=== PATIENT | male | born 1935 | race Caucasian/White ===

== ENCOUNTER → 2018-10-29 | Outpatient (CLI) | payer MEDICARE, MEDICAID ==
[2018-10-29 12:02] LABS: HEMATOCRIT 44 % (40-54); HEMOGLOBIN 15.2 G/DL (13.3-17.7); MEAN CORPUSCULAR HEMOGLOBIN 32 PG (25-34); MEAN CORPUSCULAR HGB CONC 35 G/DL (32-36); MEAN CORPUSCULAR VOLUME 91 FL (80-99); RED CELL DISTRIBUTION WIDTH 13.4 % (10.0-14.5)
[2018-10-29 12:03] LABS: BASOPHILS # (AUTO) 0.1 10^3/uL (0.0-0.1); BASOPHILS % (AUTO) 0 % (0-10); EOSINOPHILS # (AUTO) 0.5 10^3/uL (0.0-0.3); EOSINOPHILS % (AUTO) 7 % (0-10); LYMPHOCYTES % (AUTO) 14 % (12-44); MEAN PLATELET VOLUME 9.5 FL (7.4-10.4); MONOCYTES # (AUTO) 0.5 X 10^3 (0.0-1.0); MONOCYTES % (AUTO) 8 % (0-12); NEUTROPHILS # (AUTO) 4.9 X 10^3 (1.8-7.8); NEUTROPHILS % (AUTO) 70 % (42-75); PLATELET COUNT 160 10^3/uL (130-400)
[2018-10-29 12:30] LABS: BUN/CREATININE RATIO 19; CALCIUM 9.4 MG/DL (8.5-10.1); CARBON DIOXIDE 32 MMOL/L (21-32); CHLORIDE 92 MMOL/L (98-107); CREATININE SERUM 0.88 MG/DL (0.60-1.30); GFR ESTIMATED > 60; GLUCOSE 77 MG/DL (70-105); POTASSIUM 3.6 MMOL/L (3.6-5.0); SODIUM 136 MMOL/L (135-145)
[2018-10-29 12:31] LABS: ALANINE AMINOTRANSFERASE 15 U/L (0-55); ALBUMIN 4.7 GM/DL (3.2-4.5); ALKALINE PHOSPHATASE 65 U/L (40-136); BILIRUBIN,TOTAL 0.7 MG/DL (0.1-1.0); TOTAL PROTEIN 6.9 GM/DL (6.4-8.2)
[2018-10-29 14:50] LABS: CHOLESTEROL 104 MG/DL (< 200); HDL CHOLESTEROL 40 MG/DL (40-60); TRIGLYCERIDES 99 MG/DL (<150); VLDL CHOLESTEROL 20 MG/DL (5-40)
== END ==
LOC: LAB FS 11:08
PROVIDERS: ATTEND Family Medicine
DX: E11.9 Type 2 diabetes mellitus without complications (principal); Z79.4 Long term (current) use of insulin
CPT/HCPCS: 36415; 80053; 80061; 82043; 83036; 85025

== ENCOUNTER → 2019-01-27 | Outpatient (CLI) | payer MEDICARE, MEDICAID ==
[~2019-01-27] MED LIST: BARIUM SUSPENSION 105% (LIQUID POLIBAR PLUS) 240 ML/DOSE PO ONE; BARIUM SUSPENSION 60% (LIQUID EZ PAQUE) 240 ML DOSE PO ONE
--- NOTE | 2019-01-27 17:04 | Diagnostic Imaging Report ---
INDICATION: Dysphagia. TECHNIQUE: The patient ingested effervescent crystals as well as thin and thick barium and imaging of the esophagus was performed. One minute and 27 seconds of fluoroscopy was utilized. The esophagus has a smooth contour. No mass or stricture is identified. There appears to be postop changes of fundoplication. No gastroesophageal reflux or hiatal hernia is seen. IMPRESSION: Postop changes. No significant abnormality is seen. Dictated by: Dictated on workstation # [id number]
== END ==
LOC: RAD 10:32
PROVIDERS: ATTEND Otolaryngology Otolaryngology/Facial Plastic Surgery
DX: R13.10 Dysphagia, unspecified (principal); Z98.890 Other specified postprocedural states
CPT/HCPCS: 74220

== ENCOUNTER 2019-06-15 10:57 | Emergency (ER) | payer MEDICARE, MEDICAID ==
[~2019-06-15] VITALS: Ht 167 cm; Wt 89.0 kg
[2019-06-15 11:44] LABS: HEMATOCRIT 39 % (40-54); HEMOGLOBIN 13.3 G/DL (13.3-17.7); MEAN CORPUSCULAR HEMOGLOBIN 31 PG (25-34); MEAN CORPUSCULAR HGB CONC 34 G/DL (32-36); MEAN CORPUSCULAR VOLUME 92 FL (80-99); MEAN PLATELET VOLUME 9.6 FL (7.4-10.4); PLATELET COUNT 150 10^3/uL (130-400); RED CELL DISTRIBUTION WIDTH 13.6 % (10.0-14.5); WHITE BLOOD COUNT 8.9 10^3/uL (4.3-11.0)
[2019-06-15 11:45] LABS: BASOPHILS % (AUTO) 0 % (0-10); EOSINOPHILS # (AUTO) 0.1 10^3/uL (0.0-0.3); EOSINOPHILS % (AUTO) 1 % (0-10); LYMPHOCYTES # (AUTO) 0.5 X 10^3 (1.0-4.0); LYMPHOCYTES % (AUTO) 6 % (12-44); MONOCYTES # (AUTO) 0.8 X 10^3 (0.0-1.0); MONOCYTES % (AUTO) 8 % (0-12); NEUTROPHILS # (AUTO) 7.5 X 10^3 (1.8-7.8); NEUTROPHILS % (AUTO) 84 % (42-75)
--- NOTE | 2019-06-15 11:45 | ED Syncope ---
General Chief Complaint: Dizziness/Syncope Stated Complaint: LOC Nursing Triage Note: Patient brought in by EMS from dentist office after having possible syncopal episode. Patient stated he was having lots of pain from having his teeth pulled yesterday and doesn't do good with blood. He also hasn't eaten since yesterday morning and has taken insulin. Blood sugar per EMS was 175. Patient states he felt dizzy and thought he was going to pass out. States "I ended up on the floor with 30 people staring at me" Source of Information: Patient History of Present Illness Date Seen by Provider: Jun 15, 2019 Time Seen by Provider: 11:30 Initial Comments The patient is a very pleasant 83-year-old male presents for evaluation from a dental office after possible syncopal episode. He arrives via EMS. The patient states that yesterday he had several of his teeth pulled and today he was having a plate moved around. He states that when he saw the blood he passed out. He had not eaten anything since yesterday morning and does take insulin for diabetes. His blood sugar per EMS was 175. He states that he has had multiple episodes of syncope in the past which were triggered by the side of his own blood. Upon arrival in the emergency department he has no complaints. He specifically denies chest pain, shortness of breath, nausea or vomiting, fevers or chills, palpitations, dizziness or syncope. He reports a history of CAD status post 3 coronary artery stents. Timing/Prior Episodes: Other (patient reports multiple episodes of syncope in the past.) Symptoms Prior to Episode: None Precipitating Factors: Other (sight of blood from recent dental surgery) Loss of Consciousness: Brief (Seconds) Current Symptoms: Back to Normal Allergies and Home Medications Allergies Coded Allergies: No Known Drug Allergies (Unverified , 01/27/19) Patient Home Medication List Home Medication List Reviewed: Yes Review of Systems Constitutional: no symptoms reported EENTM: no symptoms reported Respiratory: no symptoms reported Cardiovascular: syncope Gastrointestinal: no symptoms reported Genitourinary: no symptoms reported Musculoskeletal: no symptoms reported Skin: no symptoms reported Psychiatric/Neurological: No Symptoms Reported All Other Systems Reviewed Negative Unless Noted: Yes Past Mdxkfua-Lztzhp-Djpxnb Hx Past Med/Social Hx: Reviewed Nursing Past Med/Soc Hx Patient Social History Recent Foreign Travel: No Contact w/Someone Who Travel: No Recent Infectious Disease Expo: No Physical Exam Vital Signs Vital Signs - First Documented 06/15/19 11:02 Temp 35.1 Pulse 62 Resp 15 B/P (MAP) 129/59 (82) Pulse Ox 94 Capillary Refill : Less Than 3 Seconds Height, Weight, BMI Height: '" Weight: lbs. oz. kg; 31.00 BMI Method: General Appearance: No Apparent Distress, WD/WN HEENT: PERRL/EOMI, Normal ENT Inspection, Pharynx Normal Neck: Full Range of Motion, Non Tender, Supple Cardiovascular: Regular Rate, Rhythm, No Edema, No JVD Respiratory: Chest Non Tender, Lungs Clear, Normal Breath Sounds, No Accessory Muscle Use, No Respiratory Distress Gastrointestinal: Non Tender, Soft Extremities: Normal Capillary Refill, Non Tender Neurologic/Psychiatric: Alert, Oriented x3, No Motor/Sensory Deficits, Normal Mood/Affect Cranial Nerves: Normal Hearing, Normal Speech, PERRL Motor/Sensory: No Motor Deficit, No Sensory Deficit Skin: Normal Color, Warm/Dry Progress/Results/Core Measures Results/Orders Lab Results Laboratory Tests Test 06/15/19 11:25 Range/Units White Blood Count 8.9 4.3-11.0 10^3/uL Red Blood Count 4.27 L 4.35-5.85 10^6/uL Hemoglobin 13.3 13.3-17.7 G/DL Hematocrit 39 L 40-54 % Mean Corpuscular Volume 92 80-99 FL Mean Corpuscular Hemoglobin 31 25-34 PG Mean Corpuscular Hemoglobin Concent 34 32-36 G/DL Red Cell Distribution Width 13.6 10.0-14.5 % Platelet Count 150 130-400 10^3/uL Mean Platelet Volume 9.6 7.4-10.4 FL Neutrophils (%) (Auto) 84 H 42-75 % Lymphocytes (%) (Auto) 6 L 12-44 % Monocytes (%) (Auto) 8 0-12 % Eosinophils (%) (Auto) 1 0-10 % Basophils (%) (Auto) 0 0-10 % Neutrophils # (Auto) 7.5 1.8-7.8 X 10^3 Lymphocytes # (Auto) 0.5 L 1.0-4.0 X 10^3 Monocytes # (Auto) 0.8 0.0-1.0 X 10^3 Eosinophils # (Auto) 0.1 0.0-0.3 10^3/uL Basophils # (Auto) 0.0 0.0-0.1 10^3/uL Prothrombin Time 13.4 12.2-14.7 SEC INR Comment 1.0 0.8-1.4 Activated Partial Thromboplast Time 28 24-35 SEC Sodium Level 136 135-145 MMOL/L Potassium Level 3.9 3.6-5.0 MMOL/L Chloride Level 94 L 98-107 MMOL/L Carbon Dioxide Level 33 H 21-32 MMOL/L Anion Gap 9 5-14 MMOL/L Blood Urea Nitrogen 19 H 7-18 MG/DL Creatinine 1.02 0.60-1.30 MG/DL Estimat Glomerular Filtration Rate > 60 BUN/Creatinine Ratio 19 Glucose Level 135 H 70-105 MG/DL Calcium Level 9.7 8.5-10.1 MG/DL Corrected Calcium 9.8 8.5-10.1 MG/DL Magnesium Level 1.9 1.6-2.4 MG/DL Total Bilirubin 0.5 0.1-1.0 MG/DL Aspartate Amino Transf (AST/SGOT) 16 5-34 U/L Alanine Aminotransferase (ALT/SGPT) 15 0-55 U/L Alkaline Phosphatase 61 40-136 U/L Troponin I < 0.30 <0.30 NG/ML Total Protein 6.0 L 6.4-8.2 GM/DL Albumin 3.9 3.2-4.5 GM/DL My Orders Orders - EDISON BARRETT DO Cbc With Automated Diff (06/15/19 11:) Magnesium (06/15/19 11:) Chest 1 View Ap/Pa Only (06/15/19:) Ekg Tracing (06/15/19:) Comprehensive Metabolic Panel (06/15/19 11:) Protime With Inr (06/15/19 11:) Partial Thromboplastin Time (06/15/19 11:) O2 (06/15/19:) Monitor-Rhythm Ecg Trace Only (06/15/19:) Ed Iv/Invasive Line Start (06/15/19 11:) Troponin I Fs (06/15/19 11:) Manual Differential (06/15/19 11:25) Vital Signs/I&O 06/15/19 11:02 Temp 35.1 Pulse 62 Resp 15 B/P (MAP) 129/59 (82) Pulse Ox 94 Blood Pressure Mean: 82 Progress Progress Note : Progress Note @1210 - the patient reports that he is feeling completely back to normal and has no complaints. Workup today fails reveal any emergent pathology. The patient is stable for discharge home. The site of his own blood as cause multiple similar episodes in the past. Advise close follow-up with his PCP in the next 1-2 days and return to the emergency Department immediately for new or worsening symptoms. EKG : Comment @1129 - sinus bradycardia, rate of 56, no acute ischemic findings noted, no STEMI, reviewed and interpreted by myself Diagnostic Imaging Comments [facility]. [place], [place] NAME: CELSO MOYA [facility] REC#: [id number] PT STATUS: REG ER : 1937 PHYSICIAN: EDISON BARRETT DO ADMIT DATE: 06/15/19/ER FS Draft Date of Exam:06/15/19 CHEST 1 VIEW AP/PA ONLY INDICATION: Dizziness. Time of exam 11:28 AM No prior studies are available for comparison. The heart size is normal. The pulmonary vascularity is unremarkable. The lungs are clear. No infiltrate, effusion or pneumothorax is detected. Impression: No acute cardiopulmonary process is detected. Dictated on workstation # [id number] Dict: 06/15/19 1156 Trans: 06/15/19 1200 [facility] [id number] Interpreted by: MADAY PAT MD Electronically signed by: Departure Impression Primary Impression: Syncope Disposition: 01 HOME, SELF-CARE Condition: Stable Departure-Patient Inst. Decision time for Depature: 12:14 Referrals: SELF,KOFFI CARDOZO (PCP) Primary Care Physician VIKY LOREDO MD (Family) Primary Care Physician Patient Instructions: Syncope (Fainting) (DC) Add. Discharge Instructions: Follow-up with your doctor in the next 1-2 days. Return to the emergency Department immediately for new or worsening symptoms. EDISON BARRETT DO Jun 15, 2019 11:44
[2019-06-15 11:58] LABS: PROTHROMBIN TIME PATIENT 13.4 SEC (12.2-14.7)
--- NOTE | 2019-06-15 12:00 | Diagnostic Imaging Report ---
INDICATION: Dizziness. Time of exam 11:28 AM No prior studies are available for comparison. The heart size is normal. The pulmonary vascularity is unremarkable. The lungs are clear. No infiltrate, effusion or pneumothorax is detected. Impression: No acute cardiopulmonary process is detected. Dictated by: Dictated on workstation # [id number]
[2019-06-15 12:01] LABS: ALKALINE PHOSPHATASE 61 U/L (40-136); BILIRUBIN,TOTAL 0.5 MG/DL (0.1-1.0); BUN/CREATININE RATIO 19; CALCIUM 9.7 MG/DL (8.5-10.1); CARBON DIOXIDE 33 MMOL/L (21-32); CHLORIDE 94 MMOL/L (98-107); CREATININE SERUM 1.02 MG/DL (0.60-1.30); GFR ESTIMATED > 60; GLUCOSE 135 MG/DL (70-105); MAGNESIUM 1.9 MG/DL (1.6-2.4); POTASSIUM 3.9 MMOL/L (3.6-5.0); SODIUM 136 MMOL/L (135-145)
[2019-06-15 12:02] LABS: ALANINE AMINOTRANSFERASE 15 U/L (0-55); ALBUMIN 3.9 GM/DL (3.2-4.5)
[2019-06-15 12:21] LABS: BAND NEUTROPHILS 3 %; BASOPHILS % (MANUAL) 0 %; EOSINOPHILS % (MANUAL) 2 %; LYMPHOCYTES % (MANUAL) 7 %; MONOCYTES % (MANUAL) 6 %; NEUTROPHILS % (MANUAL) 82 %
[2019-06-15 12:22] LABS: RBC MORPH NORMAL
[2019-06-15 12:26] VITALS: BP 97/43
--- NOTE | 2019-06-15 12:45 | NUR ---
[facility].
--- NOTE | 2019-06-15 12:46 | NUR ---
Called [facility] to inform that patient will be discharged and is coming back by taxi.
== END 2019-06-15 12:50 | disposition home or self-care (01) ==
LOC: EDUNIT# 10:57 → ER FS 10:58
DX: R55 Syncope and collapse (principal)
CPT/HCPCS: 36415; 71045; 80053; 83735; 84484; 85007; 85027; 85610; 85730; 93005; 93041

== ENCOUNTER → 2019-06-15 | Outpatient (CLI) | payer MEDICARE, MEDICAID ==
[2019-06-15 15:31] LABS: CHOLESTEROL 86 MG/DL (< 200); HDL CHOLESTEROL 32 MG/DL (40-60); TRIGLYCERIDES 88 MG/DL (<150); VLDL CHOLESTEROL 18 MG/DL (5-40)
== END ==
LOC: LAB FS 12:15
PROVIDERS: ATTEND Family Medicine
DX: E11.9 Type 2 diabetes mellitus without complications (principal); E78.5 Hyperlipidemia, unspecified
CPT/HCPCS: 36415; 80061; 83036

== ENCOUNTER 2019-07-25 08:11 | Observation (INO) | payer MEDICARE, MEDICAID ==
[~2019-07-25] VITALS: Ht 167.7 cm; Wt 74.0 kg
[2019-07-25] VITALS (10 sets, daily range): BP systolic 166–201; BP diastolic 76–92
--- NOTE | 2019-07-25 08:32 | ED Chest Pain ---
General Stated Complaint: CHEST PAIN Source: patient, EMS Exam Limitations: no limitations History of Present Illness Date Seen by Provider: Jul 25, 2019 Time Seen by Provider: 08:18 Initial Comments The patient is a pleasant 83-year-old male presents from intermediate for evaluation of chest pain which she states been present for 4 days. He states that approximately 7 years ago he had a heart attack and was given a choice between going to the [facility] or having a CABG and he states that he chose to have stents placed. He was told that he may one day need to have a CABG. He arrives via EMS and lives in a intermediate. He states that he was given a nitroglycerin at the intermediate and his pain completely resolved. He had artery take an aspirin this morning as well. Upon arrival in the emergency department the patient reports no complaints. Timing/Duration: 3-4 days Severity/Quality: moderate Location: substernal Radiation: no radiation Activities at Onset: none Prior CP/Workup: cardiac cath, heart attack ASA po GAME DESIGNER/CREATIVE DIRECTOR: Yes NTG SL GAME DESIGNER/CREATIVE DIRECTOR: Yes Associated Symptoms: denies symptoms Allergies and Home Medications Allergies Coded Allergies: No Known Drug Allergies (Unverified , 01/27/19) Patient Home Medication List Home Medication List Reviewed: Yes Review of Systems Review of Systems Constitutional: no symptoms reported EENTM: No Symptoms Reported Respiratory: No Symptoms Reported Cardiovascular: Chest Pain Gastrointestinal: No Symptoms Reported Genitourinary: No Symptoms Reported Musculoskeletal: no symptoms reported Skin: no symptoms reported Psychiatric/Neurological: No Symptoms Reported Endocrine: No Symptoms Reported Hematologic/Lymphatic: No Symptoms Reported All Other Systems Reviewed Negative Unless Noted: Yes Past Maarlti-Yyffcl-Hrlmxx Hx Past Med/Social Hx: Reviewed Nursing Past Med/Soc Hx Patient Social History 2nd Hand Smoke Exposure: No Recent Foreign Travel: Yes Recent Hopitalizations: No Seasonal Allergies Seasonal Allergies: No Past Medical History Surgeries: Yes (colonoscopies; cystoscopy) Respiratory: No Cardiac: Yes Heart Attack Neurological: Yes Stroke Genitourinary: No Gastrointestinal: Yes (hernia) Gastroesophageal Reflux Endocrine: Yes Diabetes, Insulin dep HEENT: Yes Cataract Loss of Vision: Left Hearing Impairment: Hard of Hearing Integumentary: No Physical Exam Vital Signs Vital Signs - First Documented 07/25/19 08:15 Temp 36.0 Pulse 67 Resp 24 B/P (MAP) 185/82 (116) Pulse Ox 98 O2 Delivery Room Air Capillary Refill : Height, Weight, BMI Height: '" Weight: lbs. oz. kg; 31.00 BMI Method: General Appearance: No Apparent Distress, WD/WN HEENT: PERRL/EOMI, TMs Normal, Pharynx Normal Neck: Full Range of Motion, Non Tender, Supple Respiratory: Chest Non Tender, Lungs Clear, Normal Breath Sounds, No Accessory Muscle Use Cardiovascular: Regular Rate, Rhythm, No Edema, No Murmur Gastrointestinal: Normal Bowel Sounds, Non Tender, Soft Extremity: Normal Capillary Refill, Non Tender Neurologic/Psychiatric: Alert, Oriented x3, No Motor/Sensory Deficits, Normal Mood/Affect, utility clerk II-XII Norm as Tested Skin: Normal Color, Warm/Dry Progress/Results/Core Measures Results/Orders Lab Results Laboratory Tests Test 07/25/19 08:20 Range/Units White Blood Count 6.8 4.3-11.0 10^3/uL Red Blood Count 3.52 L 4.35-5.85 10^6/uL Hemoglobin 11.2 L 13.3-17.7 G/DL Hematocrit 33 L 40-54 % Mean Corpuscular Volume 93 80-99 FL Mean Corpuscular Hemoglobin 32 25-34 PG Mean Corpuscular Hemoglobin Concent 34 32-36 G/DL Red Cell Distribution Width 14.2 10.0-14.5 % Platelet Count 175 130-400 10^3/uL Mean Platelet Volume 9.1 7.4-10.4 FL Neutrophils (%) (Auto) 73 42-75 % Lymphocytes (%) (Auto) 14 12-44 % Monocytes (%) (Auto) 9 0-12 % Eosinophils (%) (Auto) 3 0-10 % Basophils (%) (Auto) 1 0-10 % Neutrophils # (Auto) 4.9 1.8-7.8 X 10^3 Lymphocytes # (Auto) 1.0 1.0-4.0 X 10^3 Monocytes # (Auto) 0.6 0.0-1.0 X 10^3 Eosinophils # (Auto) 0.2 0.0-0.3 10^3/uL Basophils # (Auto) 0.1 0.0-0.1 10^3/uL Prothrombin Time 13.2 12.2-14.7 SEC INR Comment 1.0 0.8-1.4 Activated Partial Thromboplast Time 29 24-35 SEC Sodium Level 133 L 135-145 MMOL/L Potassium Level 3.8 3.6-5.0 MMOL/L Chloride Level 92 L 98-107 MMOL/L Carbon Dioxide Level 29 21-32 MMOL/L Anion Gap 12 5-14 MMOL/L Blood Urea Nitrogen 11 7-18 MG/DL Creatinine 0.83 0.60-1.30 MG/DL Estimat Glomerular Filtration Rate > 60 BUN/Creatinine Ratio 13 Glucose Level 120 H 70-105 MG/DL Calcium Level 8.8 8.5-10.1 MG/DL Corrected Calcium 9.1 8.5-10.1 MG/DL Magnesium Level 1.9 1.6-2.4 MG/DL Total Bilirubin 0.3 0.1-1.0 MG/DL Aspartate Amino Transf (AST/SGOT) 23 5-34 U/L Alanine Aminotransferase (ALT/SGPT) 13 0-55 U/L Alkaline Phosphatase 62 40-136 U/L Troponin I < 0.30 <0.30 NG/ML Pro-B-Type Natriuretic Peptide 725.7 H <75.0 PG/ML Total Protein 5.9 L 6.4-8.2 GM/DL Albumin 3.6 3.2-4.5 GM/DL My Orders Orders - EDISON BARRETT DO Cbc With Automated Diff (07/25/19 08:24) Magnesium (07/25/19 08:24) Chest 1 View Ap/Pa Only (07/25/19 08:24) Ekg Tracing (07/25/19 08:24) Comprehensive Metabolic Panel (07/25/19 08:24) Protime With Inr (07/25/19 08:24) Partial Thromboplastin Time (07/25/19 08:24) O2 (07/25/19 08:24) Monitor-Rhythm Ecg Trace Only (07/25/19 08:24) Ed Iv/Invasive Line Start (07/25/19 08:24) Troponin I Fs (07/25/19 08:24) Probnp Fs (07/25/19 08:24) Vital Signs/I&O 07/25/19 08:15 Temp 36.0 Pulse 67 Resp 24 B/P (MAP) 185/82 (116) Pulse Ox 98 O2 Delivery Room Air Progress Progress Note : Progress Note @0950 - patient updated on lab and imaging results. He is agreeable to observation admission. He is agreeable to observation admission. @1000 - Dr. Saul accepts the cardiac consult. @1005 - Dr. Padron accepts the observation admission. EKG : Comment EKG@0818 - normal sinus rhythm, rate of 62, normal axis, questionable ST depr ession in lead 2, otherwise no evidence of acute ST change, no STEMI, reviewed and interpreted by myself Departure Communication (Admissions) Time/Spoke to Admitting Phy: 10:05 Dr. Padron excepts the observation admission at [facility] Impression Primary Impression: Chest pain Disposition: ADMITTED INPATIENT Condition: Stable Admissions Decision to Admit Reason: Admit from ER (General) Decision to Admit/Date: Jul 25, 2019 Time/Decision to Admit Time: 10:05 Departure-Patient Inst. Referrals: KOFFI CORTEZ MD (PCP/Family) Primary Care Physician EDISON BARRETT DO Jul 25, 2019 08:32 POS
[2019-07-25 08:33] LABS: HEMATOCRIT 33 % (40-54); HEMOGLOBIN 11.2 G/DL (13.3-17.7); MEAN CORPUSCULAR HEMOGLOBIN 32 PG (25-34); WHITE BLOOD COUNT 6.8 10^3/uL (4.3-11.0)
[2019-07-25 08:34] LABS: BASOPHILS # (AUTO) 0.1 10^3/uL (0.0-0.1); BASOPHILS % (AUTO) 1 % (0-10); EOSINOPHILS # (AUTO) 0.2 10^3/uL (0.0-0.3); EOSINOPHILS % (AUTO) 3 % (0-10); LYMPHOCYTES % (AUTO) 14 % (12-44); MEAN CORPUSCULAR HGB CONC 34 G/DL (32-36); MEAN CORPUSCULAR VOLUME 93 FL (80-99); MEAN PLATELET VOLUME 9.1 FL (7.4-10.4); MONOCYTES # (AUTO) 0.6 X 10^3 (0.0-1.0); MONOCYTES % (AUTO) 9 % (0-12); NEUTROPHILS # (AUTO) 4.9 X 10^3 (1.8-7.8); NEUTROPHILS % (AUTO) 73 % (42-75); PLATELET COUNT 175 10^3/uL (130-400); RED CELL DISTRIBUTION WIDTH 14.2 % (10.0-14.5)
--- NOTE | 2019-07-25 08:40 | Diagnostic Imaging Report ---
INDICATION: History of coronary artery disease, now with chest pain. COMPARISON: 06/15/2019. FINDINGS: There is no failure pattern. The heart size is within normal limits. No substantial vascular congestion. No effusion or pneumothorax. IMPRESSION: No acute finding or failure pattern. Dictated by: Dictated on workstation # [id number]
[2019-07-25 08:49] LABS: PROTHROMBIN TIME PATIENT 13.2 SEC (12.2-14.7)
[2019-07-25 08:53] LABS: ALANINE AMINOTRANSFERASE 13 U/L (0-55); ALBUMIN 3.6 GM/DL (3.2-4.5); ALKALINE PHOSPHATASE 62 U/L (40-136); BILIRUBIN,TOTAL 0.3 MG/DL (0.1-1.0); BUN/CREATININE RATIO 13; CALCIUM 8.8 MG/DL (8.5-10.1); CARBON DIOXIDE 29 MMOL/L (21-32); CHLORIDE 92 MMOL/L (98-107); CREATININE SERUM 0.83 MG/DL (0.60-1.30); GFR ESTIMATED > 60; GLUCOSE 120 MG/DL (70-105); MAGNESIUM 1.9 MG/DL (1.6-2.4); POTASSIUM 3.8 MMOL/L (3.6-5.0); SODIUM 133 MMOL/L (135-145); TOTAL PROTEIN 5.9 GM/DL (6.4-8.2)
[2019-07-25] MEDS ORDERED: NITROGLYCERIN 0.4 MG SL TABS BTL 25'S SL PRN (12:30)
[2019-07-25] MEDS ORDERED: CATHETER FLUSH 10 ML SYR IV PRN (12:30)
[2019-07-25] MEDS ORDERED: ONDANSETRON 4 MG/2 ML (SDV) Z0FRAN IV PRN (12:30)
[2019-07-25] MEDS ORDERED: morphine INJ 4 MG/ML 1 ML (VIAL/SYRINGE) IV PRN (12:30)
[2019-07-25] MEDS ORDERED: METF-399 PO (13:12)
[2019-07-25] MEDS ORDERED: ATOR80TA76 PO (13:12)
[2019-07-25] MEDS ORDERED: SOLI5TAB7 PO (13:12)
[2019-07-25] MEDS ORDERED: NAPR220T66 PO (13:12)
[2019-07-25] MEDS ORDERED: NAPR250T6 PO (13:12)
[2019-07-25] MEDS ORDERED: PRED5DRO17 OU (13:12)
[2019-07-25] MEDS ORDERED: POTA10TA36 PO (13:12)
[2019-07-25] MEDS ORDERED: CARV25TA PO (13:12)
[2019-07-25] MEDS ORDERED: ASCO10006 PO (13:12)
[2019-07-25] MEDS ORDERED: SODI22SP NS (13:12)
[2019-07-25] MEDS ORDERED: ACET-2267 PO (13:12)
[2019-07-25] MEDS ORDERED: FURO20TA4 PO (13:12)
[2019-07-25] MEDS ORDERED: LOSA1TAB26 PO (13:12)
[2019-07-25] MEDS ORDERED: ASPI-983 PO (13:12)
[2019-07-25] MEDS ORDERED: GABA-490 PO (13:12)
[2019-07-25] MEDS ORDERED: ISOS30TA3 PO (13:12)
[2019-07-25] MEDS ORDERED: CARB15DR OU (13:12)
[2019-07-25] MEDS ORDERED: POLY17PO6 PO (13:12)
[2019-07-25] MEDS ORDERED: MAGN250T13 PO (13:12)
[2019-07-25] MEDS ORDERED: INSU100I34 SC (13:12)
[2019-07-25] MEDS ORDERED: LORA10TA76 PO (13:12)
[2019-07-25] MEDS ORDERED: FISH1CAP15 PO (13:12)
[2019-07-25] MEDS ORDERED: INSU100I14 SC (13:12)
[2019-07-25] MEDS ORDERED: FLAX10004 PO (13:12)
[2019-07-25] MEDS ORDERED: MULT1TAB69 PO (13:12)
[2019-07-25] MEDS ORDERED: UBID1CAP53 PO (13:17)
--- NOTE | 2019-07-25 13:17 | NUR ---
UPDATED MED REC WITH PHARMACY ORDERS FROM [facility]. NOTE THE ORDERS STATED ALEVE (NAPROXEN) 250MG HS HOWEVER THE EXT MED HX SHOWS THE ALEVE 220MG WAS FILLED MOST RECENTLY. I UPDATED THE MED REC WITH THE STRENGTH FILLED ON THE EXT MED HX.
--- NOTE | 2019-07-25 13:17 | NUR ---
NITA CELSO Cabrales admitted to room 420-1, with an admitting diagnosis of chest pain, on 07/25/19 from [facility] ED via stretcher and EMS, accompanied by EMS. CELSO MOYA introduced to surroundings, call light, bed controls, phone, TV, temperature control, lights, meal times, smoking policy, visitor policy, side rail policy, bathrooms and showers. Patient Rights given to patient in the handbook. CELSO MOYA verbalizes understanding that [facility] is not responsible for the loss or damage to any personal effects or valuables that are kept in the patients possession during their hospitalization. The following Patient Care Plans were discussed with the patient: Discharge Planning, pain management, dehydration, and mediations. CELSO MOYA verbalizes understanding of Interdisciplinary Patient Education. Patient and/or family were informed about the Rapid Response Team and its purpose.
[2019-07-25] MEDS ORDERED: MILK OF MAGNESIA 400 MG/5 ML 30 ML UDC PO PRN (13:30)
[2019-07-25] MEDS ORDERED: POLYETHYLENE GLYCOL 17 GM (MIRALAX) PACK PO PRN (13:30)
[2019-07-25] MEDS ORDERED: ACETAMINOPHEN 325 MG TABLET PO PRN (13:30)
[2019-07-25] MEDS ORDERED: BISACODYL 10 MG SUPP (DULCOLAX) PR PRN (13:30)
[2019-07-25] MEDS ORDERED: ANTACID SUSP 30 ML UDC (MYLANTA) PO PRN (13:30)
[2019-07-25] MEDS ORDERED: MELATONIN 3 MG TABLET PO PRN (13:30)
[2019-07-25] MEDS ORDERED: NON-FORMULARY MEDICATION 1 EA EA (Carboxymethylcellulose Sodium (Refresh Tears) 1 DROP) OU PRN (13:45)
[2019-07-25] MEDS ORDERED: NON-FORMULARY MEDICATION 1 EA EA (Loratadine (Claritin) 10 MG) PO PRN (13:45)
[2019-07-25] MEDS ORDERED: LORATADINE (CLARITIN) 10 MG TAB PO PRN (14:15)
[2019-07-25] MEDS ORDERED: ARTIFICAL TEARS 0.4 ML UNIT DOSE (REFRESH PLUS) OU PRN (14:15)
--- NOTE | 2019-07-25 14:20 | History & Physical-Hospitalist ---
History of Present Illness HPI/Chief Complaint Pt is an 83yoCM with a PMH of CAD s/p 3 stent, [place], HTN, IDDMII who presented to the ER due to chest pain. He states it started 4 days ago but he didn't want to tell the nurse at the care home because he knew she would want him to come to the ER. This continued every day intermittently and he tried taking Tylenol for it and it would eventually go away. Last night it worsened and he was gasping for air and moaning in pain. He still did not tell anyone about this until this morning and when he did the RN at the [facility] advised him to call his doctor and go to the ER for evaluation. He was given an nitro in the ambulance and his symptoms resolved. He states it has still been off and on this since he got here but now he thinks it's because he's hungry. He denies any associated SOB or radiation to his arm. It was similar to the previous pain he had when he had his heart attack but not as bad. Source: patient Date Seen 07/25/19 Time Seen by a Provider: 13:30 Attending Physician Rosendo Padron MD PCP SelfGabe MD Referring Physician Date of Admission Jul 25, 2019 at 11:10 Home Medications & Allergies Home Medications Reviewed patient Home Medication Reconciliation performed by pharmacy medication reconciliations all terrain vehicle technician and/or nursing. Patients Allergies have been reviewed. Allergies Allergies Coded Allergies No Known Drug Allergies (Unverified01/27/19) Past Cosjfwo-Hciazi-Ieyrsj Hx Past Med/Social Hx: Reviewed Nursing Past Med/Soc Hx Patient Social History Employed/Student: retired Alcohol Use: Denies Use Recreational Drug Use: No Smoking Status: Never a Smoker 2nd Hand Smoke Exposure: No Recent Foreign Travel: No Contact w/other who traveled: No Recent Hopitalizations: No Recent Infectious Disease Expo: No Immunizations Up To Date Date of Influenza Vaccine: Jul 11, 2019 Seasonal Allergies Seasonal Allergies: No Past Medical History Surgeries: Adenoidectomy, Coronary Stent, Eye Surgery, Tonsillectomy Cardiac: Coronary Artery Disease, Heart Attack Neurological: Stroke Gastrointestinal: Gastroesophageal Reflux Endocrine: Diabetes, Insulin dep HEENT: Cataract Loss of Vision: Left Hearing Impairment: Hard of Hearing Family History Reviewed Nursing Family Hx Review of Systems Constitutional: no symptoms reported EENTM: no symptoms reported Respiratory: No cough, No dyspnea on exertion, No short of breath Cardiovascular: see HPI; No edema Gastrointestinal: No abdominal pain, No heartburn, No nausea, No vomiting Genitourinary: no symptoms reported Musculoskeletal: no symptoms reported Skin: no symptoms reported Psychiatric/Neurological: No Symptoms Reported Physical Exam Physical Exam Vital Signs Vital Signs - First Documented 07/25/19 08:15 Temp 36.0 Pulse 67 Resp 24 B/P (MAP) 185/82 (116) Pulse Ox 98 O2 Delivery Room Air Capillary Refill : Less Than 3 Seconds Height, Weight, BMI Height: '" Weight: lbs. oz. kg; 26.45 BMI Method: General Appearance: No Apparent Distress, WD/WN HEENT: PERRL/EOMI, Moist Mucous Membranes; No Scleral Icterus (L), No Scleral Icterus (R) Neck: Normal Inspection, Supple; No Thyromegaly Respiratory: Lungs Clear, No Accessory Muscle Use, No Respiratory Distress Cardiovascular: Regular Rate, Rhythm, No Murmur Gastrointestinal: Normal Bowel Sounds, Non Tender, Soft Extremity: Normal Inspection, No Calf Tenderness, No Pedal Edema Neurologic/Psychiatric: Alert, Oriented x3, Normal Mood/Affect Skin: Warm/Dry; No Mottled; Pallor Results Results/Procedures Labs Laboratory Tests 07/25/19 08:20 Patient resulted labs reviewed. Imaging: Reviewed Imaging Report Assessment/Plan Admission Diagnosis Chest Pain Admission Status: Observation Assessment and Plan Chest Pain CAD HTN HLD Troponin negative Monitor on telemetry Cardiology consulted, appreciate recs Nitro given in ER, ASA given as NH Resume home antihypertensives IDDMII Continue home insulin SSI Diagnosis/Problems Diagnosis/Problems (1) CAD (coronary artery disease) Qualifiers: Coronary Disease-Associated Artery/Lesion type: [place]ot artery [place] vs. transplanted heart: wiyot heart Associated angina: with unspecified angina Qualified Codes: I25.119 - Atherosclerotic heart disease of [place] coronary artery with unspecified angina pectoris (2) Insulin dependent diabetes mellitus (3) HLD (hyperlipidemia) Qualifiers: Hyperlipidemia type: mixed hyperlipidemia Qualified Codes: E78.2 - Mixed hyperlipidemia (4) Essential (primary) hypertension (5) Chest pain Status: Acute Qualifiers: Chest pain type: other chest pain Qualified Codes: R07.89 - Other chest pain Clinical Quality Measures AMI/AHF: ASA po Prior to arrival: Yes DVT/VTE Risk/Contraindication: Risk Factor Score Per Nursin RFS Level Per Nursing on Admit: 4+=Very High Copy Copies To 1: SELF,ROSENDO BRUNO MD, MD Jul 25, 2019 14:20 POS
[2019-07-25] MEDS ORDERED: NON-FORMULARY MEDICATION 1 EA EA (Insulin Aspart (Novolog Flexpen) 6 UNITS) SC SCH (16:00)
--- NOTE | 2019-07-25 16:00 | Consultation-Cardiology ---
HPI-Cardiology Cardiology Consultation Date of Consultation 07/25/19 Date of Admission Time Seen by Provider: 15:56 Indication: Chest pain HPI 83 years old gentleman with history of coronary artery disease, extensive disease as described below. Hypertension hyperlipidemia. Started have chest pain waxing and waning for the past 4 days which has been worsening. Came into the emergency room and admitted. Currently feeling better but starting to have chest pain again described it as dull in nature in the retrosternal area and with having some dyspnea. No palpitation. No syncope or near syncopal episodes. EKG showed nonspecific changes, cardiac enzymes so far negative Home Medications & Allergies Allergies: Coded Allergies: No Known Drug Allergies (Unverified , 01/27/19) Home Medication List Reviewed: Yes [facility] Hx Patient Social History Employed/Student: retired Alcohol Use: Denies Use Recreational Drug Use: No Smoking Status: Never a Smoker 2nd Hand Smoke Exposure: No Recent Foreign Travel: No Recent Infectious Disease Expo: No Recent Hopitalizations: No Immunizations Up To Date Date of Influenza Vaccine: Jul 11, 2019 Past Medical History Discussed below Family Medical History Family Medical Hx Noncontributory Review of Systems-General Review of Systems Constitutional: no symptoms reported, see HPI EENTM: see HPI, no symptoms reported Respiratory: see HPI; No cough; dyspnea on exertion; No short of breath Cardiovascular: see HPI, chest pain; No edema, No Hx of Intervention, No palpitations, No syncope, No vascular heart diseas, No other Gastrointestinal: no symptoms reported, see HPI; No abdominal pain, No heartburn, No nausea, No vomiting Genitourinary: no symptoms reported, see HPI Musculoskeletal: no symptoms reported, see HPI Skin: no symptoms reported, see HPI Psychiatric/Neurological: No Symptoms Reported, See HPI All Other Systems Reviewed Negative Unless Noted: Yes Reviewed Test Results Reviewed Test Results Lab Laboratory Tests Test 07/25/19 08:20 Range/Units White Blood Count 6.8 4.3-11.0 10^3/uL Red Blood Count 3.52 L 4.35-5.85 10^6/uL Hemoglobin 11.2 L 13.3-17.7 G/DL Hematocrit 33 L 40-54 % Mean Corpuscular Volume 93 80-99 FL Mean Corpuscular Hemoglobin 32 25-34 PG Mean Corpuscular Hemoglobin Concent 34 32-36 G/DL Red Cell Distribution Width 14.2 10.0-14.5 % Platelet Count 175 130-400 10^3/uL Mean Platelet Volume 9.1 7.4-10.4 FL Neutrophils (%) (Auto) 73 42-75 % Lymphocytes (%) (Auto) 14 12-44 % Monocytes (%) (Auto) 9 0-12 % Eosinophils (%) (Auto) 3 0-10 % Basophils (%) (Auto) 1 0-10 % Neutrophils # (Auto) 4.9 1.8-7.8 X 10^3 Lymphocytes # (Auto) 1.0 1.0-4.0 X 10^3 Monocytes # (Auto) 0.6 0.0-1.0 X 10^3 Eosinophils # (Auto) 0.2 0.0-0.3 10^3/uL Basophils # (Auto) 0.1 0.0-0.1 10^3/uL Prothrombin Time 13.2 12.2-14.7 SEC INR Comment 1.0 0.8-1.4 Activated Partial Thromboplast Time 29 24-35 SEC Sodium Level 133 L 135-145 MMOL/L Potassium Level 3.8 3.6-5.0 MMOL/L Chloride Level 92 L 98-107 MMOL/L Carbon Dioxide Level 29 21-32 MMOL/L Anion Gap 12 5-14 MMOL/L Blood Urea Nitrogen 11 7-18 MG/DL Creatinine 0.83 0.60-1.30 MG/DL Estimat Glomerular Filtration Rate > 60 BUN/Creatinine Ratio 13 Glucose Level 120 H 70-105 MG/DL Calcium Level 8.8 8.5-10.1 MG/DL Corrected Calcium 9.1 8.5-10.1 MG/DL Magnesium Level 1.9 1.6-2.4 MG/DL Total Bilirubin 0.3 0.1-1.0 MG/DL Aspartate Amino Transf (AST/SGOT) 23 5-34 U/L Alanine Aminotransferase (ALT/SGPT) 13 0-55 U/L Alkaline Phosphatase 62 40-136 U/L Troponin I < 0.30 <0.30 NG/ML Pro-B-Type Natriuretic Peptide 725.7 H <75.0 PG/ML Total Protein 5.9 L 6.4-8.2 GM/DL Albumin 3.6 3.2-4.5 GM/DL Physical Exam Physical Exam Vital Signs Vital Signs - First Documented 07/25/19 08:15 Temp 36.0 Pulse 67 Resp 24 B/P (MAP) 185/82 (116) Pulse Ox 98 O2 Delivery Room Air Capillary Refill : Less Than 3 Seconds Height, Weight, BMI Height: '" Weight: lbs. oz. kg; 26.45 BMI Method: General Appearance: No Apparent Distress, WD/WN Eyes: Bilateral Eye Normal Inspection, Bilateral Eye PERRL, Bilateral Eye EOMI HEENT: PERRL/EOMI, Moist Mucous Membranes; No Scleral Icterus (L), No Scleral Icterus (R) Neck: Normal Inspection, Supple; No Thyromegaly Respiratory: Lungs Clear, No Accessory Muscle Use, No Respiratory Distress Cardiovascular: Regular Rate, Rhythm, No Edema, No JVD, No Murmur Gastrointestinal: Normal Bowel Sounds, Non Tender, Soft Back: Normal Inspection, No CVA Tenderness, No Vertebral Tenderness Extremity: Normal Inspection, No Calf Tenderness, No Pedal Edema Neurologic/Psychiatric: Alert, Oriented x3, Normal Mood/Affect Skin: Warm/Dry; No Mottled; Pallor Lymphatic: No Adenopathy A/P-Cardiology Admission Diagnosis Chest pain Coronary artery disease Hypertension Hyperlipidemia Assessment/Plan Chest pain nonspecific etiology, resembling angina. EKG did not show any acute changes, planning to monitor overnight and proceed with Lexiscan stress test Coronary artery disease, history of cardiac catheterization with 3 stents placed in 2011. Reported that he had a cardiac catheterization about 2 years ago and he had some disease but the artery was too small for intervention and treated conservatively. Hypertension, labile, on multiple medication, restart medication monitor blood pressure Hyperlipidemia, monitor lipids. Diabetes mellitus, managed by primary care physician Clinical Quality Measures AMI/AHF: ASA po Prior to arrival: Yes DVT/VTE Risk/Contraindication: Risk Factor Score Per Nursin RFS Level Per Nursing on Admit: 4+=Very High REAGAN URIAS MD Jul 25, 2019 16:00 POS
[2019-07-25] MEDS: KCL 10 MEQ TAB (MICRO K) PO SCH ×2 (17:00→21:00)
[2019-07-25] MEDS ORDERED: NON-FORMULARY MEDICATION 1 EA EA (Potassium Chloride 10 MEQ) PO SCH (17:00)
[2019-07-25] MEDS: GABAPENTIN 400 MG (NEURONTIN) CAP PO SCH ×2 (17:00→20:23)
[2019-07-25] MEDS: TROSPIUM 20 MG (SANCTURA) TAB PO SCH (20:23)
[2019-07-25] MEDS: CARVEDILOL 12.5 MG (COREG) TABLET PO SCH (20:24)
[2019-07-25] MEDS: CATHETER FLUSH 10 ML SYR IV SCH ×2 (20:29→22:09)
[2019-07-25] MEDS: inSUlin ASPART (NovoLOG) 1 UNIT/0.01 ML (CHARGE PER UNIT) SC SCH ×3 (20:31→22:09)
[2019-07-25] MEDS ORDERED: POLYETHYLENE GLYCOL 17 GM (MIRALAX) PACK PO SCH (21:00)
[2019-07-25] MEDS ORDERED: NON-FORMULARY MEDICATION 1 EA EA (Carvedilol 25 MG) PO SCH (21:00)
[2019-07-26] VITALS: BP 140/65
[2019-07-26] MEDS: CATHETER FLUSH 10 ML SYR IV SCH (05:24)
[2019-07-26] MEDS: inSUlin ASPART (NovoLOG) 1 UNIT/0.01 ML (CHARGE PER UNIT) SC SCH ×4 (05:25→12:51)
[2019-07-26] MEDS: TROSPIUM 20 MG (SANCTURA) TAB PO SCH (05:25)
[2019-07-26 05:38] LABS: HEMOGLOBIN 11.7 G/DL (13.3-17.7); MEAN PLATELET VOLUME 9.1 FL (7.4-10.4); RED CELL DISTRIBUTION WIDTH 14.4 % (10.0-14.5); WHITE BLOOD COUNT 6.3 10^3/uL (4.3-11.0)
[2019-07-26 05:53] LABS: BUN/CREATININE RATIO 15; CARBON DIOXIDE 31 MMOL/L (21-32); CHLORIDE 98 MMOL/L (98-107); CREATININE SERUM 0.79 MG/DL (0.60-1.30); GFR ESTIMATED > 60; GLUCOSE 78 MG/DL (70-105); POTASSIUM 3.9 MMOL/L (3.6-5.0); SODIUM 138 MMOL/L (135-145)
[2019-07-26] MEDS ORDERED: prednisoLONE 1% OPTH (PRED FORTE) 5 ML BTL OU SCH (06:30)
[2019-07-26 08:00] VITALS: BP 188/67
[2019-07-26] MEDS ORDERED: REGADENOSON 0.4 MG/5 ML SYR (LEXISCAN) IV ONE ×2 (08:30→08:54)
[2019-07-26] MEDS ORDERED: FUROSEMIDE 20 MG (LASIX) TAB PO SCH (09:00)
[2019-07-26] MEDS ORDERED: ASPIRIN E.C. 81 MG (ECOTRIN) TAB PO SCH (09:00)
[2019-07-26] MEDS ORDERED: LOSARTAN 100 MG (COZAAR) TABLET PO SCH (09:00)
[2019-07-26] MEDS ORDERED: NON-FORMULARY MEDICATION 1 EA EA (Polyethylene Glycol 3350 (Miralax) 17 GM) PO SCH (09:00)
[2019-07-26] MEDS ORDERED: HYDROCHLOROTHIAZIDE 12.5 MG (HCTZ) CAP PO SCH (09:00)
[2019-07-26] MEDS ORDERED: ISOSORBIDE MONONITRATE 30 MG (IMDUR) TAB PO SCH (09:00)
[2019-07-26 09:41] VITALS: BP 202/94
[2019-07-26] MEDS: GABAPENTIN 400 MG (NEURONTIN) CAP PO SCH (11:37)
[2019-07-26] MEDS: KCL 10 MEQ TAB (MICRO K) PO SCH (11:37)
[2019-07-26] MEDS: CARVEDILOL 12.5 MG (COREG) TABLET PO SCH (11:38)
[2019-07-26 12:00] VITALS: BP 198/97
--- NOTE | 2019-07-26 13:48 | Discharge Summary ---
Diagnosis/Chief Complaint Date of Admission Jul 25, 2019 at 11:10 Date of Discharge Admission Diagnosis Chest Pain Primary Care Self,Gabe CARDOZO Discharge Diagnosis (1) CAD (coronary artery disease) (2) Insulin dependent diabetes mellitus (3) HLD (hyperlipidemia) (4) Essential (primary) hypertension (5) Chest pain Status: Acute Discharge Summary Discharge Physical Exam Allergies: Coded Allergies: No Known Drug Allergies (Unverified , 01/27/19) Vitals & I&Os Vital Signs Date Time Temp Pulse Resp B/P (MAP) Pulse Ox O2 Delivery O2 Flow Rate FiO2 07/26/19 12:43 66 07/26/19 12:00 36.4 18 198/97 (130) 99 Room Air Hospital Course Labs (last 24 hrs) Laboratory Tests 07/25/19 17:01: Glucometer 58*L 07/26/19 00:51: Glucometer 123H 07/26/19 04:55: White Blood Count 6.3, Red Blood Count 3.69L, Hemoglobin 11.7L, Hematocrit 34L, Mean Corpuscular Volume 92, Mean Corpuscular Hemoglobin 32, Mean Corpuscular Hemoglobin Concent 35, Red Cell Distribution Width 14.4, Platelet Count 191, Mean Platelet Volume 9.1, Sodium Level 138, Potassium Level 3.9, Chloride Level 98, Carbon Dioxide Level 31, Anion Gap 9, Blood Urea Nitrogen 12, Creatinine 0.79, Estimat Glomerular Filtration Rate > 60, BUN/Creatinine Ratio 15, Glucose Level 78, Calcium Level 9.0 Patient resulted labs reviewed. Imaging: Reviewed Imaging Report Discharge Home Medications: Active Scripts Active Reported Co Q-10 100 mg Softgel (Ubidecarenone/Vit E Acetate) 1 Each Capsule 100 Mg PO 1700 Aleve (Naproxen Sodium) 220 Mg Tablet 220 Mg PO 1700 Prednisolone Acetate 5 Ml Drops.susp 1 Drop OU 0630 Claritin (Loratadine) 10 Mg Tablet 10 Mg PO DAILY PRN Tylenol Extra Strength (Acetaminophen) 500 Mg Tablet 500 Mg PO TID PRN Refresh Tears (Carboxymethylcellulose Sodium) 15 Ml Drops 1 Drop OU TID PRN [place] Saline Nasal Gel Thornton (Sodium Chloride/Aloe Vera) 22 Ml Thornton 1 Thornton NS 2000 Miralax (Polyethylene Glycol 3350) 17 Gm Powd.pack 17 Gm PO DAILY Solifenacin Succinate 5 Mg Tablet 5 Mg PO HS Gabapentin 400 Mg Capsule 400 Mg PO QID Losartan-Hctz 100-12.5 mg Tab (Losartan/Hydrochlorothiazide) 1 Each Tablet 1 Tab PO DAILY Aspirin EC (Aspirin) 81 Mg Tablet.dr 81 Mg PO 1700 Magnesium (Magnesium Oxide) 250 Mg Tablet 250 Mg PO 1200 Vitamin C (Ascorbic Acid) 1,000 Mg Tablet 1,000 Mg PO 1700 Multivitamins (Multivitamin) 1 Each Tablet 1 Tab PO 1200 Flaxseed Oil 1,000 Mg Capsule 1,000 Mg PO HS Fish Oil 1,200 mg Fish Oil (Fish Oil/Dha/Epa) 1 Each Capsule 1,200 Mg PO QID Atorvastatin Calcium 80 Mg Tablet 80 Mg PO HS Furosemide 20 Mg Tablet 20 Mg PO DAILY Potassium Chloride 10 Meq Tab.er.prt 10 Meq PO QID Metformin HCl 1,000 Mg Tablet 1,000 Mg PO 0800,1200 Carvedilol 25 Mg Tablet 25 Mg PO BID Isosorbide Mononitrate ER (Isosorbide Mononitrate) 30 Mg Tab.er.24h 30 Mg PO DAILY Novolog Flexpen (Insulin Aspart) 300 Units/3 Ml Solution 6 Units SC TIDAC HOLD IF BLOOD SUGAR <100 Basaglar Kwikpen U-100 (Insulin Glargine,Hum.rec.anlog) 100 Unit/1 Ml Insuln.pen 26 Units SC DAILY Instructions to patient/family Please see electronic discharge instructions given to patient. Clinical Quality Measures AMI/AHF: ASA po Prior to arrival: Yes DVT/VTE Risk/Contraindication: Risk Factor Score Per Nursin RFS Level Per Nursing on Admit: 4+=Very High Problem Qualifiers (1) CAD (coronary artery disease): Coronary Disease-Associated Artery/Lesion type: [place] artery [place] vs. tra nsplanted heart: [place] heart Associated angina: with unspecified angina Qualified Codes: I25.119 - Atherosclerotic heart disease of [place] coronary artery with unspecified angina pectoris (2) HLD (hyperlipidemia): Hyperlipidemia type: mixed hyperlipidemia Qualified Codes: E78.2 - Mixed hyperlipidemia (3) Chest pain: Chest pain type: other chest pain Qualified Codes: R07.89 - Other chest pain ROSENDO SILVERMAN MD Jul 26, 2019 13:48 POS
--- NOTE | 2019-07-26 13:52 | Discharge Inst-Simple/Standard ---
Discharge Inst-Standard Reconcile Patient Problems Problems Reviewed?: Yes Patient Instructions/Follow Up Plan of Care/Instructions/FU: Please continue to take your medications as written. Please follow up with your PCP in the next week to follow up this hospital stay. Activity as Tolerated: Yes Discharge Diet: Cardiac Diet Return to The Hospital For: Chest pain, Shortness of breath, if you feel you are getting worse. ROSENDO SILVERMAN MD Jul 26, 2019 13:52 POS
--- NOTE | 2019-07-26 14:04 | NUR ---
DISCHARGE PLANNING: This RN has spoken to patient regarding his POC for discharge. He is reporting that he plans to return to [facility] today. Dr. Saul to F/U i two weeks. I have spoken with [facility] staff and told them that he will return to them today. Patient reports that his friend and POA for medical is in [place] and will be here and available to transport him.
--- NOTE | 2019-07-26 15:24 | NUR ---
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
--- NOTE | 2019-07-26 16:47 | Cardiology Progress Note ---
Subjective Date Seen by Provider: Jul 26, 2019 Time Seen by Provider: 10:00 Subjective/Events-last exam patient was seen in the stress lab, was feeling better. No chest pain was reported Review of Systems General: No Chills, No Night Sweats, No Fatigue, No Malaise, No Appetite, No Other HEENT: No Head Aches, No Visual Changes, No Eye Pain, No Ear Pain, No Dysphasia , No Sinus Congestion, No Post Nasal Drip, No Sore Throat, No Other Pulmonary: No Dyspnea, No Cough, No Pleuritic Chest Pain, No Other Cardiovascular: No: Chest Pain, Palpitations, Orthopnea, Paroxysmal Noc. Dyspnea, Edema, Lt Headedness, Other Objective-Cardiology Exam Last Set of Vital Signs Vital Signs 07/26/19 07/26/19 12:00 12:43 Temp 36.4 Pulse 66 Resp 18 B/P (MAP) 198/97 (130) Pulse Ox 99 O2 Delivery Room Air Capillary Refill : Less Than 3 SecondsLess Than 3 Seconds I&O Intake and Output 07/26/19 00:00 Intake Total 920 ml Output Total 500 ml Balance 420 ml Intake Oral 920 ml Output Urine Total 500 ml # Voids 1 # Bowel Movements 1 Daily Weight Change No No General: Alert, Oriented X3, Cooperative HEENT: Atraumatic, PERRLA Neck: Supple, No JVD, No Thyromegaly Lungs: Clear to Auscultation, Normal Air Movement Heart: Regular Rate, Normal S1, Normal S2, Other (Systolic murmur at the left sternal border) Abdomen: Normal Bowel Sounds, Soft, No Tenderness, No Hepatosplenomegaly, No Masses Extremities: No Clubbing, No Cyanosis, No Edema, Normal Pulses, No Tenderness/Swelling Skin: No Rashes, No Breakdown, No Significant Lesion Neuro: Normal Gait, Normal Speech, Strength at 5/5 X4 Ext, Normal Tone, Sensation Intact Psych/Mental Status: Mental Status NL, Mood NL Results Lab Laboratory Tests 07/26/19 04:55 A/P-Cardiology Admission Diagnosis Chest pain Coronary artery disease Hypertension Hyperlipidemia Assessment/Plan Chest pain nonspecific etiology, resembling angina. EKG did not show any acute changes, stress test did not show any significant ischemia, discussed with primary care physician and reported that he is okay for discharge and follow-up as an outpatient Coronary artery disease, history of cardiac catheterization with 3 stents placed in 2011. Reported that he had a cardiac catheterization about 2 years ago and he had some disease but the artery was too small for intervention and treated conservatively. Hypertension, labile, on multiple medication, restart medication monitor blood pressure Hyperlipidemia, monitor lipids. Diabetes mellitus, managed by primary care physician Clinical Quality Measures AMI/AHF: ASA po Prior to arrival: Yes DVT/VTE Risk/Contraindication: Risk Factor Score Per Nursin RFS Level Per Nursing on Admit: 4+=Very High REAGAN URIAS MD Jul 26, 2019 16:47 POS
--- NOTE | 2019-07-27 08:22 | STRESS TEST ---
DATE OF SERVICE: 07/26/2019 REFERRING PHYSICIAN: Dr. Gabe Garay. Baseline heart rate is 67. Baseline blood pressure is 202/94. Baseline EKG is sinus rhythm with no ischemic changes. In summary, the patient was injected with 10.31 mCi of technetium-99 Myoview and the resting images were obtained. Then, the patient received 0.4 mg of Lexiscan followed by 29.9 mCi of technetium-99 Myoview. Throughout the test, there were no EKG changes. The resting and stress images were reviewed and compared in the short axis, horizontal long axis, and vertical long axis views. Review of the images showed diaphragmatic attenuation with decreased uptake at the inferoapical segment with no significant reversibility. SSS is 4, SDS 1, TID value 1.12. On the gated images, the left ventricle appeared to be in normal size with normal contractility. Calculated ejection fraction 55%. CONCLUSION: 1. The patient tolerated Lexiscan well. 2. Baseline hypertension persisted during test. 3. Diaphragmatic attenuation with typical male pattern with no significant ischemia or infarction on SPECT images. 4. Normal left ventricular size with normal contractility. Calculated ejection fraction 55%. Job ID: [id number] DocumentID: [id number] Dictated Date: 07/27/2019 06:47:51 Manager Assessment Date: 07/27/2019 08:21:10 Dictated By: REAGAN URIAS MD
== END 2019-07-26 15:15 | disposition home or self-care (01) ==
LOC: EDUNIT# 08:11 → ER FS 08:13 → 4TH 11:10 → UNDOADMOB 11:10 → 4TH 12:00 → UNDODISOB 07-26 15:48
PROVIDERS: ADMIT Family Medicine; ATTEND Family Medicine
DX: R07.9 Chest pain, unspecified (principal); E78.2 Mixed hyperlipidemia; I10 Essential (primary) hypertension; K21.9 Gastro-esophageal reflux disease without esophagitis; E11.9 Type 2 diabetes mellitus without complications; Z86.74 Personal history of sudden cardiac arrest; Z79.4 Long term (current) use of insulin; Z95.1 Presence of aortocoronary bypass graft
CPT/HCPCS: 36415; 71045; 78452; 80048; 80053; 82962; 83735; 83880; 84484; 85025; 85027; 85610; 85730; 93005; 93017; 93041; G0378

== ENCOUNTER 2019-09-04 05:56 | Outpatient (CLI) | payer MEDICARE, MEDICAID ==
[~2019-09-04] VITALS: Ht 167 cm; Wt 73.6 kg
[~2019-09-04 05:56] MED LIST changes: +ACET-2267 PO; +ASCO10006 PO; +ASPI-983 PO; +ATOR80TA76 PO; -BARIUM SUSPENSION 105% (LIQUID POLIBAR PLUS) 240 ML/DOSE PO ONE; -BARIUM SUSPENSION 60% (LIQUID EZ PAQUE) 240 ML DOSE PO ONE; +CARB15DR OU; +CARV25TA PO; +FISH1CAP15 PO; +FLAX10004 PO; +FURO20TA4 PO; +GABA-490 PO; +INSU100I14 SC; +INSU100I34 SC; +ISOS30TA3 PO; +LORA10TA76 PO; +LOSA1TAB26 PO; +MAGN250T13 PO; +METF-399 PO; +MULT1TAB69 PO; +NAPR220T66 PO; +NAPR250T6 PO; +POLY17PO6 PO; +POTA10TA36 PO; +PRED5DRO17 OU; +SODI22SP NS; +SOLI5TAB7 PO; +UBID1CAP53 PO
[2019-09-04] MEDS ORDERED: PANT40TA3 PO (11:09)
== END 2019-09-04 10:55 | disposition home or self-care (01) ==
LOC: PREOP 05:56
PROVIDERS: ATTEND Surgery
DX: Z01.818 Encounter for other preprocedural examination (principal)

== ENCOUNTER 2019-09-21 15:13 | Emergency (ER) | payer MEDICARE, MEDICAID ==
[~2019-09-21] VITALS: Ht 167 cm; Wt 73.0 kg
[~2019-09-21 15:13] MED LIST changes: +PANT40TA3 PO; +SUCR1TAB36 PO
--- NOTE | 2019-09-21 15:27 | ED Syncope ---
General Chief Complaint: Dizziness/Syncope Stated Complaint: SYNCOPE Source of Information: Patient, EMS History of Present Illness Date Seen by Provider: Sep 21, 2019 Time Seen by Provider: 15:25 Initial Comments 83-year-old male brought in following a syncope event. Patient was at a provider's office getting some test results from an EGD. While at the office he got a little dizzy stood up and had a brief syncope event. EMS reports when they arrived that his blood pressure was good when setting however when they stood him- his bp dropped and he became dizzy. Patient states that he is fine as long as he is sitting but if he stands he becomes lightheaded. Patient denies any new medications recently. He does not have any chest pain, shortness of breath, nausea vomiting fevers chills or any other systemic complaints. Allergies and Home Medications Allergies Coded Allergies: No Known Drug Allergies (Unverified , 09/04/19) Home Medications Acetaminophen 500 Mg Tablet, 500 MG PO TID PRN for PAIN-MILD (1-4), (Reported) Ascorbic Acid 1,000 Mg Tablet, 1,000 MG PO 1700, (Reported) Atorvastatin Calcium 80 Mg Tablet, 80 MG PO HS, (Reported) Carboxymethylcellulose Sodium 15 Ml Drops, 1 DROP OU TID PRN for DRY EYES, (Reported) Carvedilol 25 Mg Tablet, 25 MG PO BID, (Reported) Fish Oil/Dha/Epa 1 Each Capsule, 1,200 MG PO QID, (Reported) Flaxseed Oil 1,000 Mg Capsule, 1,000 MG PO HS, (Reported) Furosemide 20 Mg Tablet, 20 MG PO DAILY, (Reported) Gabapentin 400 Mg Capsule, 400 MG PO QID, (Reported) Insulin Aspart 300 Units/3 Ml Solution, 6 UNITS SC TIDAC, (Reported) HOLD IF BLOOD SUGAR <100 Insulin Glargine,Hum.rec.anlog 100 Unit/1 Ml Insuln.pen, 24 UNITS SC DAILY, (Reported) Isosorbide Mononitrate 30 Mg Tab.er.24h, 30 MG PO DAILY, (Reported) Loratadine 10 Mg Tablet, 10 MG PO DAILY PRN for ALLERGIES, (Reported) Losartan/Hydrochlorothiazide 1 Each Tablet, 1 TAB PO DAILY, (Reported) Magnesium Oxide 250 Mg Tablet, 250 MG PO 1200, (Reported) Metformin HCl 1,000 Mg Tablet, 1,000 MG PO 0800,1200, (Reported) Multivitamin 1 Each Tablet, 1 TAB PO 1200, (Reported) Pantoprazole Sodium 40 Mg Tablet.dr, 40 MG PO DAILY, (Reported) Polyethylene Glycol 3350 17 Gm Powd.pack, 17 GM PO DAILY, (Reported) Potassium Chloride 10 Meq Tab.er.prt, 5 MEQ PO TID, (Reported) Prednisolone Acetate 5 Ml Drops.susp, 1 DROP OU 0630, (Reported) Sodium Chloride/Aloe Vera 22 Ml Norris, 1 SPRAY NS 2000, (Reported) Solifenacin Succinate 5 Mg Tablet, 5 MG PO HS, (Reported) Sucralfate 1 Gm Tablet, 1 GM PO ACHS Prescribed by: PAMELA REYNOLDS on 09/11/19 1234 Ubidecarenone/Vit E Acetate 1 Each Capsule, 100 MG PO 1700, (Reported) Patient Home Medication List Home Medication List Reviewed: Yes Review of Systems Constitutional: No chills, No fever Respiratory: No cough, No short of breath Cardiovascular: No chest pain, No palpitations Gastrointestinal: no symptoms reported Genitourinary: no symptoms reported Musculoskeletal: no symptoms reported Psychiatric/Neurological: See HPI Past Qxgppcv-Qdypfr-Ohmlcg Hx Past Med/Social Hx: Reviewed Nursing Past Med/Soc Hx Patient Social History 2nd Hand Smoke Exposure: No Recent Foreign Travel: No Contact w/Someone Who Travel: No Recent Hopitalizations: No Immunizations Up To Date PED Vaccines UTD: No Date of Influenza Vaccine: Jul 11, 2019 Seasonal Allergies Seasonal Allergies: No Past Medical History Surgeries: Yes (colonoscopies; cystoscopy, hiatal hernia repair) Adenoidectomy, Coronary Stent, Eye Surgery, Tonsillectomy Respiratory: No Cardiac: Yes Coronary Artery Disease, Heart Attack Neurological: Yes Stroke Sexually Transmitted Disease: No HIV/AIDS: No Genitourinary: Yes (overactive bladder) Gastrointestinal: Yes (hernia) Gastroesophageal Reflux Musculoskeletal: No Endocrine: Yes Diabetes, Insulin dep HEENT: Yes Cataract Loss of Vision: Left Hearing Impairment: Hard of Hearing Cancer: No Psychosocial: No Integumentary: No Blood Disorders: No Adverse Reaction/Blood Tranf: No Physical Exam Vital Signs Vital Signs - First Documented 09/21/19 09/21/19 15:15 17:10 Temp 36.4 Pulse 58 Resp 18 B/P (MAP) 135/64 (87) Pulse Ox 99 O2 Delivery Room Air Capillary Refill : Height, Weight, BMI Height: '" Weight: lbs. oz. kg; 26.39 BMI Method: General Appearance: No Apparent Distress, WD/WN HEENT: PERRL/EOMI Neck: Non Tender, Supple Cardiovascular: Regular Rate, Rhythm, Normal Peripheral Pulses Respiratory: Lungs Clear, Normal Breath Sounds Gastrointestinal: Non Tender, Soft Back: No CVA Tenderness Extremities: Normal Capillary Refill Neurologic/Psychiatric: Alert, Oriented x3, No Motor/Sensory Deficits, Normal Mood/Affect, foam charger II-XII Norm as Tested Motor/Sensory: No Motor Deficit, No Sensory Deficit, No Pronator Drift Skin: Normal Color, Warm/Dry Progress/Results/Core Measures Results/Orders Lab Results Laboratory Tests Test 09/21/19 15:25 09/21/19 15:51 09/21/19 16:03 Range/Units White Blood Count 6.1 4.3-11.0 10^3/uL Red Blood Count 3.71 L 4.35-5.85 10^6/uL Hemoglobin 11.2 L 13.3-17.7 G/DL Hematocrit 33 L 40-54 % Mean Corpuscular Volume 90 80-99 FL Mean Corpuscular Hemoglobin 30 25-34 PG Mean Corpuscular Hemoglobin Concent 34 32-36 G/DL Red Cell Distribution Width 13.4 10.0-14.5 % Platelet Count 169 130-400 10^3/uL Mean Platelet Volume 9.3 7.4-10.4 FL Neutrophils (%) (Auto) 64 42-75 % Lymphocytes (%) (Auto) 20 12-44 % Monocytes (%) (Auto) 13 H 0-12 % Eosinophils (%) (Auto) 3 0-10 % Basophils (%) (Auto) 1 0-10 % Neutrophils # (Auto) 3.9 1.8-7.8 X 10^3 Lymphocytes # (Auto) 1.2 1.0-4.0 X 10^3 Monocytes # (Auto) 0.8 0.0-1.0 X 10^3 Eosinophils # (Auto) 0.2 0.0-0.3 10^3/uL Basophils # (Auto) 0.0 0.0-0.1 10^3/uL Sodium Level 134 L 135-145 MMOL/L Potassium Level 3.8 3.6-5.0 MMOL/L Chloride Level 97 L 98-107 MMOL/L Carbon Dioxide Level 25 21-32 MMOL/L Anion Gap 12 5-14 MMOL/L Blood Urea Nitrogen 13 7-18 MG/DL Creatinine 1.26 0.60-1.30 MG/DL Estimat Glomerular Filtration Rate 55 BUN/Creatinine Ratio 10 Glucose Level 164 H 70-105 MG/DL Calcium Level 8.6 8.5-10.1 MG/DL Corrected Calcium 9.0 8.5-10.1 MG/DL Magnesium Level 1.7 1.6-2.4 MG/DL Total Bilirubin 0.3 0.1-1.0 MG/DL Aspartate Amino Transf (AST/SGOT) 22 5-34 U/L Alanine Aminotransferase (ALT/SGPT) 19 0-55 U/L Alkaline Phosphatase 50 40-136 U/L Troponin I < 0.028 <0.028 NG/ML Total Protein 5.3 L 6.4-8.2 GM/DL Albumin 3.5 3.2-4.5 GM/DL Glucometer 162 H 70-110 MG/DL Urine Color YELLOW Urine Clarity CLEAR Urine pH 6.5 5-9 Urine Specific [place] 1.010 L 1.016-1.022 Urine Protein NEGATIVE NEGATIVE Urine Glucose (UA) NEGATIVE NEGATIVE Urine Ketones NEGATIVE NEGATIVE Urine Nitrite NEGATIVE NEGATIVE Urine Bilirubin NEGATIVE NEGATIVE Urine Urobilinogen 0.2 < = 1.0 MG/DL Urine Leukocyte Esterase NEGATIVE NEGATIVE Urine RBC (Auto) NEGATIVE NEGATIVE Urine RBC NONE /HPF Urine WBC NONE /HPF Urine Crystals NONE /LPF Urine Bacteria NEGATIVE /HPF Urine Casts PRESENT /LPF Urine Hyaline Casts 5-10 H /LPF Urine Mucus NEGATIVE /LPF Urine Culture Indicated NO My Orders Orders - RASHID,FIDEL L DO Accucheck Stat ONCE (09/21/19 15:30) Ekg Tracing (09/21/19 15:30) Monitor-Rhythm Ecg Trace Only (09/21/19 15:30) Orthostatic Vital Signs (Adult (09/21/19 15:30) Cbc With Automated Diff (09/21/19 15:30) Comprehensive Metabolic Panel (09/21/19 15:30) Magnesium (09/21/19 15:30) Troponin I (09/21/19 15:30) Ua Culture If Indicated (09/21/19 15:30) Vital Signs/I&O 09/21/19 09/21/19 09/21/19 15:15 15:41 17:10 Temp 36.4 Pulse 58 56 54 58 61 Resp 18 10 B/P (MAP) 135/64 (87) 126/65 (85) 153/75 116/63 (80) 99/55 (70) Pulse Ox 99 96 O2 Delivery Room Air Progress Progress Note : Time: 15:00 Progress Note Patient was feeling better upon discharge. His symptoms improved with some IV fluids. I did review his slight prolonged QTC with him and recommended she follow up with outpatient to have his EKG rechecked and have his medications reviewed ensure that he is not on any medications causing this. At time of discharge his orthostatic hypotension is improved. Patient significantly better and will be discharged home in stable condition Initial ECG Impression Date: Sep 21, 2019 Initial ECG Impression Time: 15:49 Initial ECG Rhythm: Normal Sinus Initial ECG Intervals: QT (QTC 486) Initial ECG Intervals borderline prolonged QTC Comment mild/borderline qtc Departure Impression Primary Impression: Abnormal QT interval present on electrocardiogram Additional Impression: Orthostatic syncope Disposition: 01 HOME, SELF-CARE Condition: Stable Departure-Patient Inst. Referrals: SELFKOFFI MD (PCP/Family) Primary Care Physician Patient Instructions: Orthostatic Hypotension (DC) Add. Discharge Instructions: Follow-up with your primary care provider in the next 2-3 days for a recheck of ear EKG, review your medications. And for further outpatient workup as needed Emergency department focuses on treating and ruling out life-threatening diseases. Whenever possible, a diagnosis is given. However, most patients are given an impression based on their history, physical exam, and workup during your brief time in the ER. Information about probable diagnosis and other educational material has been provided. Please take the time to read and understand this information. It is very important that you follow up with a physician as discussed during the visit today. Failure to adhere to your follow-up instructions may lead to severe disability, injury, or so please make sure to keep your appointments or obtain one as requested. Please keep in mind the emergency department is not designed to your primary care or "family doctor" and nonurgent issues are best evaluated by an outpatient physician All discharge instructions reviewed with patient and/or family. Voiced understanding. FIDEL RASHID DO Sep 21, 2019 15:27
[2019-09-21 15:39] LABS: BASOPHILS % (AUTO) 1 % (0-10); EOSINOPHILS # (AUTO) 0.2 10^3/uL (0.0-0.3); EOSINOPHILS % (AUTO) 3 % (0-10); HEMATOCRIT 33 % (40-54); HEMOGLOBIN 11.2 G/DL (13.3-17.7); LYMPHOCYTES # (AUTO) 1.2 X 10^3 (1.0-4.0); LYMPHOCYTES % (AUTO) 20 % (12-44); MEAN CORPUSCULAR HEMOGLOBIN 30 PG (25-34); MEAN CORPUSCULAR HGB CONC 34 G/DL (32-36); MEAN CORPUSCULAR VOLUME 90 FL (80-99); MEAN PLATELET VOLUME 9.3 FL (7.4-10.4); MONOCYTES # (AUTO) 0.8 X 10^3 (0.0-1.0); MONOCYTES % (AUTO) 13 % (0-12); NEUTROPHILS # (AUTO) 3.9 X 10^3 (1.8-7.8); NEUTROPHILS % (AUTO) 64 % (42-75); PLATELET COUNT 169 10^3/uL (130-400); RED CELL DISTRIBUTION WIDTH 13.4 % (10.0-14.5); WHITE BLOOD COUNT 6.1 10^3/uL (4.3-11.0)
[2019-09-21 15:41] VITALS: BP_SYST 116; BP_SYST 126; BP_SYST 99; BP_DIAS 55; BP_DIAS 63; BP_DIAS 65
[2019-09-21 16:01] LABS: ALANINE AMINOTRANSFERASE 19 U/L (0-55); ALBUMIN 3.5 GM/DL (3.2-4.5); ALKALINE PHOSPHATASE 50 U/L (40-136); BILIRUBIN,TOTAL 0.3 MG/DL (0.1-1.0); BUN/CREATININE RATIO 10; CALCIUM 8.6 MG/DL (8.5-10.1); CARBON DIOXIDE 25 MMOL/L (21-32); CHLORIDE 97 MMOL/L (98-107); CREATININE SERUM 1.26 MG/DL (0.60-1.30); GFR ESTIMATED 55; GLUCOSE 164 MG/DL (70-105); MAGNESIUM 1.7 MG/DL (1.6-2.4); POTASSIUM 3.8 MMOL/L (3.6-5.0); SODIUM 134 MMOL/L (135-145); TOTAL PROTEIN 5.3 GM/DL (6.4-8.2)
[2019-09-21 16:24] LABS: BILIRUBIN,URINE NEGATIVE (NEGATIVE); CLARITY,URINE CLEAR; COLOR,URINE YELLOW; GLUCOSE, URINE (UA) NEGATIVE (NEGATIVE); KETONES,URINE NEGATIVE (NEGATIVE); LEUKOCYTE ESTERASE ,URINE NEGATIVE (NEGATIVE); NITRITE,URINE NEGATIVE (NEGATIVE); PH,URINE 6.5 (5-9); PROTEIN,URINE NEGATIVE (NEGATIVE)
[2019-09-21 16:31] LABS: BACTERIA,URINE NEGATIVE /HPF
--- NOTE | 2019-09-21 16:44 | NUR ---
CALLED [facility] AT THIS TIME TO REQUEST TRANSPORT FOR PT. STATED COULD TAKE ANYWHERE BETWEEN 30 MINUTES TO 3 HOURS TO FIND AVAILABLE TRANSPORT FOR PT. DID RECIEVE NUMBER FOR "[facility]"; , OPTION 2; THAT COULD BE CALLED FOR UPDATED TRANSPORTATION STATUS.
[2019-09-21 17:10] VITALS: BP 153/75
== END 2019-09-21 17:10 | disposition home or self-care (01) ==
LOC: EDUNIT# 15:13 → ER 15:13
DX: R94.31 Abnormal electrocardiogram [ECG] [EKG] (principal); R55 Syncope and collapse; I25.2 Old myocardial infarction; E11.9 Type 2 diabetes mellitus without complications; I25.10 Atherosclerotic heart disease of native coronary artery without angina pectoris; K21.9 Gastro-esophageal reflux disease without esophagitis; Z86.73 Personal history of transient ischemic attack (TIA), and cerebral infarction without residual deficits; Z79.4 Long term (current) use of insulin; Z79.84 Long term (current) use of oral hypoglycemic drugs; Z90.89 Acquired absence of other organs; Z95.5 Presence of coronary angioplasty implant and graft
CPT/HCPCS: 36415; 80053; 81000; 82962; 83735; 84484; 85025; 93005; 93041

== ENCOUNTER 2021-03-06 06:37 | Outpatient (CLI) | payer MEDICARE, MEDICAID ==
[~2021-03-06] VITALS: Ht 167.6 cm; Wt 74.8 kg
[~2021-03-06 06:37] MED LIST changes: +ASCO100024 PO; -ASCO10006 PO; +ASPI-1238 PO; -ASPI-983 PO; -ISOS30TA3 PO; +ISOS30TA82 PO; +MULT-567 PO; -MULT1TAB69 PO; +NAPR-1088 PO; -NAPR250T6 PO; -PANT40TA3 PO; +PANT40TA52 PO
[2021-03-06] MEDS ORDERED: CRV25T PO (12:14)
[2021-03-06] MEDS ORDERED: AMLO5TAB4 PO (12:14)
[2021-03-06] MEDS ORDERED: PARO10OR3 PO (12:14)
[2021-03-06] MEDS ORDERED: NAPR-1088 PO (12:14)
== END 2021-03-06 13:37 | disposition home or self-care (01) ==
LOC: PREOP 06:37
PROVIDERS: ATTEND Surgery
DX: Z01.818 Encounter for other preprocedural examination (principal)

== ENCOUNTER 2021-03-17 09:57 | Day surgery (SDC) | payer MEDICARE, MEDICAID ==
[~2021-03-17] VITALS: Ht 167.6 cm; Wt 74.8 kg
[~2021-03-17 09:57] MED LIST changes: +AMLO5TAB4 PO; +CRV25T PO; +PARO10OR3 PO
[2021-03-17] MEDS ORDERED: LACTATED RINGERS 1,000 ML IV ONE (10:08)
[2021-03-17] MEDS ORDERED: LACTATED RINGERS 1,000 ML IV STA (10:10)
[2021-03-17] MEDS ORDERED: HURRICAINE EXT TUBE (BENZOCAINE) XX PRN (10:15)
[2021-03-17 10:21] VITALS: BP 177/74
[2021-03-17] MEDS ORDERED: proPOfol 200 MG/20 ML (DIPRIVAN) VIAL IV ONE (10:48)
[2021-03-17 11:00] VITALS: BP 156/72
[2021-03-17 11:05] VITALS: BP 152/71
--- NOTE | 2021-03-17 11:06 | Progress Note-Post Operative ---
Post-Operative Progess Note Surgeon (s)/Culinary Instructor (s) Surgeon PAMELA REYNOLDS DO Culinary Instructor: none Pre-Operative Diagnosis hx of duodenal and antral ulcer, hx of Levy's Post-Operative Diagnosis Antral ulcer Hiatal hernia esophagitis Procedure & Operative Findings Date of Procedure 03/17/21 Procedure Performed/Findings PROCEDURE NOTE: After informed consent was obtained, the patient was brought to the endoscopy suite, placed in bed in left lateral decubitus position. He was administered IV sedation by the SEWAGE PLANT SUPERVISOR who then monitored vitals the entire time, heart rate, blood pressure and pulse ox and the scope was inserted down the mouth through the esophagus into the stomach. On the way down, noted some mild esophagitis, took a picture, pushed into the stomach, pushed past the antrum into the duodenum. Duodenum looked good. Pulled back and did a biopsy of antrum right at what looked like an ulcer. Then retroflexed the scope, saw a large hiatal hernia, took a picture of this and then pulled the scope into the GE junction, took another picture of the hiatal hernia and then did a biopsy of the GE junction. Pushed the scope back into the stomach, suctioned all the air out of the stomach. At this point pulled the scope up the esophagus and out the mouth. The patient tolerated the procedure, and he recovered in endoscopy suite. Anesthesia Type IV sedation by SEWAGE PLANT SUPERVISOR Estimated Blood Loss Estimated blood loss (mL): scant Specimens/Packing Specimens Removed antral bx body of stomach bx GE jxn bx PAMELA REYNOLDS DO Mar 17, 2021 11:06
--- NOTE | 2021-03-17 11:07 | Endoscopy Discharge Instruct ---
Endo Procedure/Findings Findings 1.: Gastric Ulcer 2.: Hiatal Hernia Discharge Instructions - Activity: You might feel a little sleepy until tomorrow. This is due to the medicine you received to relax you. Until tomorrow, you should: NOT drive a car, operate machinery or power tools. NOT drink any alcoholic beverages. NOT make any important decisions or sign importortant papers. Do not return to work until tomorrow, unless otherwise instructed. Resume previous activities tomorrow. Diet: Start by taking liquids. If you tolerate liquids, advance to solid food. 1.: EGD in 1 year Notify Physician - If you experience excessive bleeding, unusual abdominal pain, fever, or chest pain, contact your doctor immediately. PAMELA REYNOLDS DO Mar 17, 2021 11:07
[2021-03-17 11:10] VITALS: BP 154/73
[2021-03-17 11:30] VITALS: BP 173/86
[2021-03-17 11:45] VITALS: BP 173/86
--- NOTE | 2021-03-17 13:07 | Anesthesia-General Post-Op ---
MAC Patient Condition Mental Status/LOC: Same as Preop Cardiovascular: Satisfactory Nausea/Vomiting: Absent Respiratory: Satisfactory Pain: Controlled Complications: Absent Post Op Complications Complications None Follow Up Care/Instructions Patient Instructions None needed. Anesthesiology Discharge Order Discharge Order Patient is doing well, no complaints, stable vital signs, no apparent adverse anesthesia problems. No complications reported per nursing. SHELLEY RODRIGUEZ CRNA Mar 17, 2021 13:07
== END 2021-03-17 11:45 | disposition home or self-care (01) ==
LOC: ENDO 09:57
PROVIDERS: ATTEND Surgery
DX: K29.50 Unspecified chronic gastritis without bleeding (principal); K21.00 Gastro-esophageal reflux disease with esophagitis, without bleeding; K44.9 Diaphragmatic hernia without obstruction or gangrene; K25.9 Gastric ulcer, unspecified as acute or chronic, without hemorrhage or perforation; I10 Essential (primary) hypertension; I25.10 Atherosclerotic heart disease of native coronary artery without angina pectoris; F32.9 Major depressive disorder, single episode, unspecified; E11.9 Type 2 diabetes mellitus without complications; E78.5 Hyperlipidemia, unspecified; Z79.02 Long term (current) use of antithrombotics/antiplatelets; Z79.899 Other long term (current) drug therapy; Z86.73 Personal history of transient ischemic attack (TIA), and cerebral infarction without residual deficits; Z79.4 Long term (current) use of insulin; Z98.890 Other specified postprocedural states; Z79.82 Long term (current) use of aspirin; Z79.2 Long term (current) use of antibiotics
CPT/HCPCS: 88305; 88342

== ENCOUNTER → 2023-03-26 | Outpatient (CLI) | payer MEDICARE, MEDICAID ==
[~2023-03-26] MED LIST changes: +POTA-177 PO; -POTA10TA36 PO
== END ==
LOC: CARD 14:09
PROVIDERS: ATTEND Internal Medicine Cardiovascular Disease
DX: I35.1 Nonrheumatic aortic (valve) insufficiency (principal); I25.10 Atherosclerotic heart disease of native coronary artery without angina pectoris; I51.7 Cardiomegaly
CPT/HCPCS: 93306

== ENCOUNTER → 2023-04-20 | Outpatient (CLI) | payer MEDICARE, MEDICAID ==
[~2023-04-20] VITALS: Ht 167 cm; Wt 85.0 kg
[~2023-04-20] MED LIST changes: +CATHETER FLUSH 10 ML SYR IVP PRN; +REGADENOSON 0.4 MG/5 ML SYR (LEXISCAN) IV ONE
[2023-04-20 09:39] VITALS: BP 116/50
--- NOTE | 2023-04-20 19:43 | STRESS TEST ---
DATE OF SERVICE: 04/20/2023 RESTING AND POST REGADENOSON TECHNETIUM-99M TETROFOSMIN SPECT CT IMAGING ORDERING PHYSICIAN: Rashawn Hollins M.D.; TO; EDUARDO; FITO; CLINICAL DIAGNOSIS: Coronary artery disease. Baseline images were carried out after injection of 10.3 mCi technetium-99m tetrofosmin. This was followed by 0.4 mg regadenoson and 30.9 mCi of technetium-99m tetrofosmin for stress imaging. The electrocardiogram showed sinus rhythm at baseline. It did not change significantly with the regadenoson infusion. The patient tolerated the procedure well. Review of images at rest and following stress indicates diminished count uptake in the diaphragmatic wall of the left ventricle. This is seen both at rest and following regadenoson infusion. This appears to be due to diaphragmatic attenuation. Gated images showed normal global left ventricular systolic function with normal regional wall motion, including the diaphragmatic wall of the left ventricle. Left ventricular ejection fraction is calculated to be 61%. CONCLUSIONS: 1. No evidence of significant myocardial ischemia or infarction on this study. 2. Normal regional wall motion. 3. Normal global left ventricular systolic function with a calculated ejection fraction of 61%. Job ID: [id number] DocumentID: [id number] Dictated Date: 04/20/2023 17:06:07 Grid Casting Machine Operator Helper Date: 04/20/2023 19:41:00 Dictated By: RASHAWN HOLLINS MD; TO; EDUARDO; FITO;
== END ==
LOC: CARD 07:41
PROVIDERS: ATTEND Internal Medicine Cardiovascular Disease
DX: I25.10 Atherosclerotic heart disease of native coronary artery without angina pectoris (principal)
CPT/HCPCS: 78452; 93017; A9502